=== PATIENT | female | born 1965 | race Two or more races ===

== ENCOUNTER 2017-05-25 22:48 | Emergency (ER) | payer MEDICAID ==
[2017-05-25 23:55] LABS: ADD MAN DIFF? NO
[2017-05-25 23:59] LABS: WHITE BLOOD COUNT 10.4 10^3/ul (4.8-10.8)
[2017-05-25 23:59] LABS: BASOPHILS % 0.3 % (0.0-2.0); EOSINOPHILS # 0.2 10^3/ul (0.0-0.5); EOSINOPHILS % 1.8 % (0.0-7.0); HEMATOCRIT 40.1 % (37.0-47.0); LYMPHOCYTES # 4.1 10^3/ul (0.8-2.9); LYMPHOCYTES % 39.1 % (15.0-51.0); MEAN CORPUSCULAR HEMOGLOBIN 30.4 pg (29.0-33.0); MEAN CORPUSCULAR HGB CONC 34.9 g/dl (32.0-37.0); MEAN PLATELET VOLUME 11.1 fl (7.4-10.4); MONOCYTE # 0.7 10^3/ul (0.3-0.9); MONOCYTES % 6.6 % (0.0-11.0); NEUTROPHIL # 5.4 10^3/ul (1.6-7.5); NEUTROPHILS % 51.9 % (39.0-77.0); PLATELET COUNT 291 10^3/UL (140-415); RED BLOOD COUNT 4.61 10^6/ul (4.20-5.40); RED CELL DISTRIBUTION WIDTH 11.9 % (11.5-14.5)
[2017-05-26 00:17] LABS: ANION GAP 14 (8-16); BLOOD UREA NITROGEN 20 mg/dl (7-20); CALCIUM 9.7 mg/dl (8.4-10.2); CARBON DIOXIDE 29 mmol/L (21-31); CHLORIDE 103 mmol/L (97-110); CREATININE 0.81 mg/dl (0.44-1.00); GLUCOSE 116 mg/dl (70-220); POTASSIUM 3.2 mmol/L (3.5-5.1); SODIUM 143 mmol/L (135-144)
[2017-05-26 00:30] LABS: TROPONIN-I < 0.012 ng/ml (0.00-0.12)
[2017-05-26] MEDS: ASPIRIN 81 MG TAB PO (00:47)
[2017-05-26] MEDS: DIPHENHYDRAMINE 50 MG INJ IV (03:05)
[2017-05-26] MEDS: KETOROLAC 15 MG INJ IV (03:06)
[2017-05-26] MEDS: SOD CHLORIDE 0.9% 500 ML IV (03:09)
[2017-05-26] MEDS: PROCHLORPERAZINE 10 MG INJ IV (03:09)
== END 2017-05-26 04:00 | disposition home or self-care (01) ==
LOC: E/R 22:48
DX: I10 Essential (primary) hypertension (principal); R20.2 Paresthesia of skin; E87.6 Hypokalemia; M25.512 Pain in left shoulder; M75.102 Unspecified rotator cuff tear or rupture of left shoulder, not specified as traumatic
CPT/HCPCS: 36415; 70450; 71045; 73030; 80048; 84484; 85025; 93005; 96374; 96375; 99285-25

== ENCOUNTER 2017-07-06 18:15 | Emergency (ER) | payer MEDICAID | END 2017-07-06 20:15 | disposition home or self-care (01) | LOC: E/R 18:15 → FTE 20:15 | DX: K11.6 Mucocele of salivary gland (principal); H60.92 Unspecified otitis externa, left ear; I10 Essential (primary) hypertension | CPT/HCPCS: 99283; Z7502 ==

== ENCOUNTER 2017-09-01 14:11 | Emergency (ER) | payer MEDICAID ==
[2017-09-01] MEDS: ASPIRIN 325 MG TAB PO (15:43)
[2017-09-01 15:46] LABS: ADD MAN DIFF? NO
[2017-09-01 15:47] LABS: BASOPHILS % 0.3 % (0.0-2.0); EOSINOPHILS # 0.2 10^3/ul (0.0-0.5); EOSINOPHILS % 1.6 % (0.0-7.0); HEMOGLOBIN 12.9 g/dl (12.0-16.0); LYMPHOCYTES # 2.8 10^3/ul (0.8-2.9); MEAN CORPUSCULAR HEMOGLOBIN 29.7 pg (29.0-33.0); MEAN CORPUSCULAR HGB CONC 33.1 g/dl (32.0-37.0); MEAN CORPUSCULAR VOLUME 89.9 fl (82.0-101.0); MEAN PLATELET VOLUME 10.6 fl (7.4-10.4); MONOCYTE # 0.6 10^3/ul (0.3-0.9); MONOCYTES % 6.3 % (0.0-11.0); NEUTROPHILS % 62.6 % (39.0-77.0); PLATELET COUNT 295 10^3/UL (140-415); RED BLOOD COUNT 4.34 10^6/ul (4.20-5.40); RED CELL DISTRIBUTION WIDTH 12.1 % (11.5-14.5)
[2017-09-01 15:47] LABS: WHITE BLOOD COUNT 9.6 10^3/ul (4.8-10.8)
[2017-09-01 16:06] LABS: ANION GAP 15 (8-16); BLOOD UREA NITROGEN 16 mg/dl (7-20); CALCIUM 8.9 mg/dl (8.4-10.2); CARBON DIOXIDE 29 mmol/L (21-31); CHLORIDE 107 mmol/L (97-110); CREATINE KINASE 43 IU/L (23-200); CREATININE 0.88 mg/dl (0.44-1.00); GLUCOSE 91 mg/dl (70-220); SODIUM 147 mmol/L (135-144)
[2017-09-01 16:18] LABS: B-TYPE NATRIURETIC PEPTIDE 118 PG/ML (0-125); CK INDEX 0.9; CK-MB 0.37 ng/ml (0.0-2.4)
[2017-09-01 16:20] LABS: TROPONIN-I < 0.012 ng/ml (0.000-0.120)
[2017-09-01] MEDS: KETOROLAC 30 MG INJ IV (19:24)
== END 2017-09-01 20:44 | disposition home or self-care (01) ==
LOC: E/R 14:11
DX: R07.9 Chest pain, unspecified (principal); I10 Essential (primary) hypertension
CPT/HCPCS: 36415; 71045; 80048; 82550; 82553; 83880; 84484; 85025; 93005; 96374; 99285-25

== ENCOUNTER 2017-10-27 09:01 | Emergency (ER) | payer MEDICAID ==
[2017-10-27] MEDS: IPRATROPIUM (NEB) 0.5 MG/2.5 ML AMP NEB (11:36)
[2017-10-27] MEDS: ALBUTEROL 0.083% (NEB) 2.5 MG/3 ML AMP NEB (11:36)
== END 2017-10-27 13:01 | disposition home or self-care (01) ==
LOC: FTE 09:01
DX: J06.9 Acute upper respiratory infection, unspecified (principal); I10 Essential (primary) hypertension
CPT/HCPCS: 71045; 94664; 99283-25

== ENCOUNTER 2017-12-18 15:59 | Emergency (ER) | payer MEDICAID ==
[2017-12-18] MEDS: LORAZEPAM 0.5 MG TAB PO (16:51)
[2017-12-18] MEDS: ASPIRIN 325 MG TAB PO (16:51)
[2017-12-18 17:07] LABS: ADD MAN DIFF? NO
[2017-12-18 17:11] LABS: BASOPHILS % 0.4 % (0.0-2.0); EOSINOPHILS # 0.2 10^3/ul (0.0-0.5); EOSINOPHILS % 2.2 % (0.0-7.0); HEMATOCRIT 39.2 % (37.0-47.0); LYMPHOCYTES # 3.3 10^3/ul (0.8-2.9); LYMPHOCYTES % 33.3 % (15.0-51.0); MEAN CORPUSCULAR HEMOGLOBIN 29.7 pg (29.0-33.0); MEAN CORPUSCULAR HGB CONC 33.2 g/dl (32.0-37.0); MEAN CORPUSCULAR VOLUME 89.7 fl (82.0-101.0); MEAN PLATELET VOLUME 10.8 fl (7.4-10.4); MONOCYTE # 0.6 10^3/ul (0.3-0.9); MONOCYTES % 5.9 % (0.0-11.0); NEUTROPHIL # 5.7 10^3/ul (1.6-7.5); NEUTROPHILS % 57.9 % (39.0-77.0); PLATELET COUNT 278 10^3/UL (140-415); RED BLOOD COUNT 4.37 10^6/ul (4.20-5.40); RED CELL DISTRIBUTION WIDTH 12.2 % (11.5-14.5)
[2017-12-18 17:11] LABS: WHITE BLOOD COUNT 9.9 10^3/ul (4.8-10.8)
[2017-12-18 17:31] LABS: INR 0.85; PROTIME 11.7 Sec (11.9-14.9); PT RATIO 0.9
[2017-12-18 17:32] LABS: PARTIAL THROMBOPLASTIN TIME 29.9 Sec (25.0-35.0)
[2017-12-18 17:34] LABS: ALANINE AMINOTRANSFERASE 17 IU/L (13-69); ALBUMIN 4.2 g/dl (3.3-4.9); ALBUMIN/GLOBULIN RATIO 1.13; ALKALINE PHOSPHATASE 93 IU/L (42-121); ANION GAP 12 (8-16); ASPARTATE AMINO TRANSFERASE 23 IU/L (15-46); BILIRUBIN,INDIRECT 0.3 mg/dl (0-1.1); BILIRUBIN,TOTAL 0.3 mg/dl (0.2-1.3); BLOOD UREA NITROGEN 14 mg/dl (7-20); CALCIUM 9.2 mg/dl (8.4-10.2); CARBON DIOXIDE 30 mmol/L (21-31); CHLORIDE 107 mmol/L (97-110); CREATININE 0.57 mg/dl (0.44-1.00); GLUCOSE 101 mg/dl (70-220); SODIUM 145 mmol/L (135-144); TOTAL PROTEIN 7.9 g/dl (6.1-8.1)
[2017-12-18 17:45] LABS: TROPONIN-I < 0.012 ng/ml (0.000-0.120)
== END 2017-12-18 18:15 | disposition home or self-care (01) ==
LOC: FTE 15:59
DX: R07.9 Chest pain, unspecified (principal); I10 Essential (primary) hypertension; Z76.0 Encounter for issue of repeat prescription
CPT/HCPCS: 71045; 80053; 84484; 85025; 85610; 85730; 93005; 99285-25

== ENCOUNTER 2018-12-25 23:41 | Emergency (ER) | payer MEDICAID ==
[2018-12-26] MEDS: SOD CHLORIDE 0.9% 1,000 ML IV (03:35)
[2018-12-26] MEDS: KETOROLAC 30 MG INJ IV (03:36)
[2018-12-26] MEDS: IOHEXOL 300MG/ML 150 ML BTL (05:37)
[2018-12-26] MEDS: SOD CHLORIDE 0.9% 100 ML (05:37)
[2018-12-26] MEDS: IOHEXOL 300MG/ML 30 ML BTL (05:38)
== END 2018-12-26 05:39 | disposition home or self-care (01) ==
LOC: FTE 23:41
DX: B34.9 Viral infection, unspecified (principal); R10.2 Pelvic and perineal pain
CPT/HCPCS: 36415; 71045; 74177; 76830; 76856; 80053; 81001; 83690; 84484; 85025; 87400-91; 93005; 96374; 99285-25